=== PATIENT | male | born 1990 | race American Indian/Alaskan Native ===

== ENCOUNTER 2017-11-21 13:00 | Emergency (ER) | payer MEDICAID, OTHER ==
[2017-11-21 13:19] VITALS: BP 144/79; PULSE 77; RESP 20; TEMP 98.1; O2SAT 99
--- NOTE | 2017-11-21 14:09 | RAD ---
PROCEDURE: Radiographs of the Chest and Right Ribs. HISTORY: R chest wall discomfort T5/mid ax line COMPARISON: None available. TECHNIQUE: Frontal radiograph of the chest and multiple oblique radiographs of the right ribs were obtained. FINDINGS: RIGHT RIBS: No fracture or focal lesion visualized. LUNGS: Clear. PLEURA: No pneumothorax or pleural fluid. CARDIOVASCULAR: Normal sized heart. No pulmonary vascular congestion. OTHER FINDINGS: None. IMPRESSION: Unremarkable radiographs of the chest and right ribs. No right rib fracture.
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
== END 2017-11-21 14:20 | disposition home or self-care (01) ==
LOC: C.ER 13:00
DX: R07.81 Pleurodynia (principal)

== ENCOUNTER 2017-12-06 13:52 | Emergency (ER) | payer OTHER ==
[2017-12-06 14:06] VITALS: RESP 16; TEMP 98.3
--- NOTE | 2017-12-06 15:20 | C.PDOC ---
History Of Present Illness 27-year-old male, presents to the emergency department with complaints of abdominal pain yesterday, which has since resolved. He denies any nausea/ vomiting, fever, chills, chest pain, shortness of breath, or any other associated symptoms. No other complaints at this time. Time Seen by Provider: 12/06/17 14:35 Chief Complaint (Nursing): Abdominal Pain History Per: Patient History/Exam Limitations: no limitations Past Medical History Reviewed: Historical Data, Nursing Documentation, Vital Signs Vital Signs: Last Vital Signs Temp 98.3 F 12/06/17 14:01 Pulse 74 12/06/17 15:26 Resp 16 12/06/17 15:26 BP 118/79 12/06/17 15:26 Pulse Ox 99 12/06/17 15:26 - [facility] Procedures SUTURE OF LIP LACERATION (11/26/14) Family History: States: No Known Family Hx - Social History Hx Tobacco Use: Yes Hx Alcohol Use: No Hx Substance Use: No - Immunization History Hx Tetanus Toxoid Vaccination: Yes Hx Influenza Vaccination: Yes Hx Pneumococcal Vaccination: Yes Review Of Systems Constitutional: Negative for: Fever, Chills Cardiovascular: Negative for: Chest Pain, Palpitations Respiratory: Negative for: Shortness of Breath Gastrointestinal: Negative for: Nausea, Vomiting Musculoskeletal: Negative for: Back Pain Skin: Negative for: Rash Neurological: Negative for: Weakness, Numbness, Headache, Dizziness Physical Exam - Physical Exam Appears: Non-toxic, No Acute Distress Skin: Normal Color, Warm, Dry, No Rash Head: Normacephalic Eye(s): bilateral: PERRL Nose: Normal Oral Mucosa: Moist Lips: Normal Appearing Neck: Normal ROM Chest: Symmetrical Cardiovascular: Rhythm Regular, No Murmur Respiratory: Normal Breath Sounds, No Accessory Muscle Use Gastrointestinal/Abdominal: Soft, No Tenderness, No Guarding, No Rebound Extremity: Normal ROM, No Deformity, No Swelling Neurological/Psych: Oriented x3, Normal Speech ED Course And Treatment O2 Sat by Pulse Oximetry: 100 (RA) Pulse Ox Interpretation: Normal Medical Decision Making Medical Decision Making: Upon evaluation, pt is refusing bloodwork. he is advised to stay for further evaluation, but he specifically requests to be discharged. He was instructed to return immediately if symptoms return or worsen. Disposition - Disposition Disposition: HOME/ ROUTINE Disposition Time: 03:00 Condition: STABLE Additional Instructions: you are declining any lab evaluation today or imaging. you are able to return to any er with worsening symptoms or concerns Instructions: Acute Abdomen (Belly Pain) Forms: [facility] (Yi), Work Excuse - Clinical Impression Clinical Impression: Abdominal pain, Encounter to obtain excuse from work - Scribe Statement The provider has reviewed the documentation as recorded by the Scribe (Darcy Leon) Provider Attestation: All medical record entries made by the Scribe were at my direction and personally dictated by me. I have reviewed the chart and agree that the record accurately reflects my personal performance of the history, physical exam, medical decision making, and the department course for this patient. I have also personally directed, reviewed, and agree with the discharge instructions and disposition.
[2017-12-06 15:27] VITALS: BP 118/79; PULSE 74
[2017-12-06 19:31] VITALS: O2SAT 100
== END 2017-12-06 15:27 | disposition home or self-care (01) ==
LOC: C.ER 13:52
DX: R10.9 Unspecified abdominal pain (principal); Z72.0 Tobacco use

== ENCOUNTER 2018-03-31 15:45 | Emergency (ER) | payer OTHER ==
[2018-03-31 15:55] VITALS: BP 113/73; PULSE 86; TEMP 97.5; O2SAT 98
--- NOTE | 2018-03-31 16:22 | C.PDOC ---
History Of Present Illness 27 year old male, with no PMHx or PSHx, presents to the emergency department complaining of constipation x2 days. Patient states last bowel movement was yesterday afternoon; he has attempted since then but with no success. He reports of mild epigastric pain but denies any nausea, vomiting, fever, chills, chest pain, SOB, or dysuria. Patient has not attempted to use any over the counter medications. Time Seen by Provider: 03/31/18 15:57 Chief Complaint (Nursing): Abdominal Pain History Per: Patient History/Exam Limitations: no limitations Onset/Duration Of Symptoms: Days Current Symptoms Are (Timing): Still Present Past Medical History Reviewed: Historical Data, Nursing Documentation, Vital Signs Vital Signs: Last Vital Signs Temp 97.5 F L 03/31/18 15:51 Pulse 86 03/31/18 15:51 Resp 19 03/31/18 15:51 BP 113/73 03/31/18 15:51 Pulse Ox 98 03/31/18 16:59 - [facility] Procedures SUTURE OF LIP LACERATION (11/26/14) Family History: States: No Known Family Hx - Social History Hx Tobacco Use: Yes Hx Alcohol Use: Yes Hx Substance Use: No - Immunization History Hx Tetanus Toxoid Vaccination: Yes Hx Influenza Vaccination: Yes Hx Pneumococcal Vaccination: Yes Review Of Systems Except As Marked, All Systems Reviewed And Found Negative. Constitutional: Negative for: Fever, Chills Cardiovascular: Negative for: Chest Pain Respiratory: Negative for: Shortness of Breath Gastrointestinal: Positive for: Abdominal Pain (mild epigastric pain), Constipation. Negative for: Nausea, Vomiting Genitourinary: Negative for: Dysuria Physical Exam - Physical Exam Additional Physical Exam Comments: Constitutional: No acute distress. Head: Normocephalic. Atraumatic. Eyes: PERRL. ENT: Moist mucous membranes. Neck: Supple. Cardiovascular: Regular rate. Radial pulse 2+ bilaterally. Chest: No tenderness. Respiratory: Clear to auscultation bilaterally. GI: Soft. Nontender. Nondistended. Back: No CVA tenderness. Musculoskeletal: No tenderness or swelling of extremities. Skin: No rash. Neurologic: Alert, no focal deficit. ED Course And Treatment O2 Sat by Pulse Oximetry: 98 (RA) Pulse Ox Interpretation: Normal - Other Rad Abdomen X-Ray X-Ray: Read By Radiologist Interpretation: FINDINGS: BOWEL: Prominent amount of retained colonic stool. No obstruction. No free air. BONES: Normal. OTHER FINDINGS: None. IMPRESSION: Prominent amount of retained colonic stool. Medical Decision Making Medical Decision Making: Impression: Constipation Plan: - Abdomen X-Ray Disposition - Disposition Referrals: Cristian Bear MD, PhD [Staff Provider] - Disposition: HOME/ ROUTINE Disposition Time: 16:59 Condition: STABLE Prescriptions: Docusate [Colace] 100 mg PO BID #30 cap Magnesium Citrate [Citrate of Mag] 300 ml PO ONCE #1 bottle Polyethylene Glycol 3350 [Miralax] 17 gm PO DAILY #238 gm Instructions: Constipation in Adults Forms: [facility] (Mongolian) - Clinical Impression Clinical Impression: Constipation - Scribe Statement The provider has reviewed the documentation as recorded by the Silasibriri Khan Provider Attestation: All medical record entries made by the Silasibe were at my direction and personally dictated by me. I have reviewed the chart and agree that the record accurately reflects my personal performance of the history, physical exam, medical decision making, and the department course for this patient. I have also personally directed, reviewed, and agree with the discharge instructions and disposition.
--- NOTE | 2018-03-31 16:47 | RAD ---
Date of service: 03/31/2018 HISTORY: constipation COMPARISON: No prior. FINDINGS: BOWEL: Prominent amount of retained colonic stool. No obstruction. No free air. BONES: Normal. OTHER FINDINGS: None. IMPRESSION: Prominent amount of retained colonic stool.
[2018-03-31 17:11] VITALS: RESP 20
== END 2018-03-31 17:10 | disposition home or self-care (01) ==
LOC: C.ER 15:45
DX: K59.00 Constipation, unspecified (principal)

== ENCOUNTER 2018-11-05 15:07 | Emergency (ER) | payer SELFPAY ==
[2018-11-05 15:12] VITALS: BMI 30.2
[2018-11-05 15:14] VITALS: RESP 18
[2018-11-05] MEDS ORDERED: Tetanus/Diphtheria Toxoids 0.5 ml Syringe IM ONE ×2 (15:32→15:40)
[2018-11-05] MEDS ORDERED: Lidocaine 2% w Epi 1:200,000 Pf Inj INJ ONE (15:32)
--- NOTE | 2018-11-05 15:32 | C.PDOC ---
History Of Present Illness 27-year-old male presents to the ED for evaluation after accidentally sustaining a scalp injury prior to arrival. Patient states that a metal object fell onto his head while he was at work. He denies loss of consciousness, nausea, vomiting, or any other associated symptoms or injury at this time. 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 Time Seen by Provider: 11/05/18 15:19 Chief Complaint (Nursing): Abnormal Skin Integrity History Per: Patient History/Exam Limitations: no limitations Onset/Duration Of Symptoms: Hrs Past Medical History Reviewed: Historical Data, Nursing Documentation, Vital Signs Vital Signs: Last Vital Signs Temp 99.9 F H 11/05/18 15:12 Pulse 98 H 11/05/18 15:12 Resp 18 11/05/18 15:12 BP 153/90 H 11/05/18 15:12 Pulse Ox 99 11/05/18 15:12 - Medical History PMH: Asthma Surgical History: No Surg Hx - [facility] Procedures SUTURE OF LIP LACERATION (11/26/14) Family History: States: Unknown Family Hx - Social History Hx Tobacco Use: Yes Hx Alcohol Use: Yes Hx Substance Use: No - Immunization History Hx Tetanus Toxoid Vaccination: Yes Hx Influenza Vaccination: Yes Hx Pneumococcal Vaccination: Yes Review Of Systems Gastrointestinal: Negative for: Nausea, Vomiting Neurological: Positive for: Other (+head injury, no LOC ) Physical Exam - Physical Exam Appears: Non-toxic, No Acute Distress Skin: Warm, Dry, Other (+2.5 CM R FRONT SCALP LAX NO SWELL NO ACTIVE BLEED) Head: No Swelling, No Other (deformity) Eye(s): bilateral: Normal Inspection, PERRL, EOMI Neck: Normal ROM, Supple Chest: Symmetrical, No Deformity Extremity: Normal ROM Neurological/Psych: Oriented x3, Normal Speech, Normal Cognition Gait: Steady ED Course And Treatment O2 Sat by Pulse Oximetry: 99 Progress Note: Tetanus IM administered. Laceration - Laceration Repair No standard instances Wound Length (In cm): 2.5 Description Of Wound: Linear, Clean Anesthesia: Lidocaine 1%, With Epi Wound Examination: Irrigated With Saline, No FB With Wound Exploration Wound Closure: Philo Wound Complexity: Intermediate (ARTERIAL BLEED CAUTERIZED, BLEEDING RESOLVED.) Disposition Counseled Patient/Family Regarding: Diagnosis, Need For Followup - Disposition Referrals: [facility] [Provider Group] Disposition: HOME/ ROUTINE Disposition Time: 15:56 Condition: IMPROVED Additional Instructions: RETURN 7-10 DAYS FOR STAPLE REMOVAL. TYLENOL, ICE TO AFFECTED NEEDED Instructions: Laceration Repair With Bernard (DC), Minor Head Injury (DC) Forms: [facility] (Yoruba), Work Excuse - Clinical Impression Clinical Impression: Scalp laceration, Minor head injury without loss of consciousness
[2018-11-05 16:10] VITALS: BP 127/82; PULSE 82; TEMP 98
[2018-11-06 00:17] VITALS: O2SAT 99
== END 2018-11-05 16:36 | disposition home or self-care (01) ==
LOC: C.ER 15:07
DX: S01.01XA Laceration without foreign body of scalp, initial encounter (principal); W22.8XXA Striking against or struck by other objects, initial encounter; Y92.89 Other specified places as the place of occurrence of the external cause; Y99.0 Civilian activity done for income or pay

== ENCOUNTER → 2018-11-13 19:07 | Emergency (ER) | payer SELFPAY ==
[2018-11-13 19:08] VITALS: BMI 30.2
== END | disposition left against medical advice (07) ==
LOC: C.ER 19:07
DX: Z02.89 Encounter for other administrative examinations (principal)

== ENCOUNTER 2018-11-16 17:52 | Emergency (ER) | payer SELFPAY ==
[2018-11-16 17:53] VITALS: BMI 30.2
[2018-11-16 18:08] VITALS: BP 146/82; PULSE 78; RESP 18; TEMP 98.3; O2SAT 98
--- NOTE | 2018-11-16 18:43 | C.PDOC ---
History Of Present Illness 28 year old male presents to ED for staple removal from the right frontal scalp. Patient reports that he feels well. Patient denies numbness, weakness, discharge, redness, fever, and chills. Time Seen by Provider: 11/16/18 18:21 Chief Complaint (Nursing): Suture/Staple Removal History Per: Patient History/Exam Limitations: no limitations Onset/Duration Of Symptoms: Other (staple removal) Location Of Injury: Right: Head (well healed staple wound on the frontal scalp) Quality Of Symptoms: denies: Painful, Itching, Swollen, Draining Past Medical History Reviewed: Historical Data, Nursing Documentation, Vital Signs Vital Signs: Last Vital Signs Temp 98.3 F 11/16/18 18:03 Pulse 78 11/16/18 18:03 Resp 18 11/16/18 18:03 BP 146/82 11/16/18 18:03 Pulse Ox 98 11/16/18 18:03 Primary Care Provider: Cristian Bear - Medical History PMH: Asthma Surgical History: No Surg Hx - [facility] Procedures SUTURE OF LIP LACERATION (11/26/14) Family History: States: Unknown Family Hx - Social History Hx Tobacco Use: Yes Hx Alcohol Use: Yes Hx Substance Use: No - Immunization History Hx Tetanus Toxoid Vaccination: Yes Hx Influenza Vaccination: Yes Hx Pneumococcal Vaccination: Yes Review Of Systems Constitutional: Negative for: Fever, Chills, Weakness ENT: Positive for: Other (staple wound to the right frontal scalp, no discharge, no redness) Skin: Negative for: Rash Neurological: Negative for: Weakness, Numbness Physical Exam - Physical Exam Appears: Well, Non-toxic, No Acute Distress Skin: Normal Color, Warm, Dry Head: Atraumatic, Normacephalic, Other (well-healed staple wound to the right frontal scalp, no drainage, no erythema) Eye(s): bilateral: Normal Inspection Neck: Normal ROM, Supple Chest: Symmetrical, No Deformity Cardiovascular: Rhythm Regular, No Murmur Respiratory: No Accessory Muscle Use, No Rales, No Rhonchi, No Wheezing Gastrointestinal/Abdominal: Soft, No Tenderness Extremity: Capillary Refill (<2 seconds) Neurological/Psych: Oriented x3, Normal Speech, Normal Cognition, Normal Sensation ED Course And Treatment O2 Sat by Pulse Oximetry: 98 (in RA) Pulse Ox Interpretation: Normal Medical Decision Making Medical Decision Making: Initial Plan: Removed all 5 emiliana with no difficulty. Patient tolerated well. Disposition - Disposition Disposition: HOME/ ROUTINE Disposition Time: 18:43 Condition: GOOD Additional Instructions: Return if worsened. 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 (Piedad Cuevas) - Scribe Statement The provider has reviewed the documentation as recorded by the Scribe (Piedad Cuevas) All medical record entries made by the Scribe were at my direction and personally dictated by me. I have reviewed the chart and agree that the record accurately reflects my personal performance of the history, physical exam, medical decision making, and the department course for this patient. I have also personally directed, reviewed, and agree with the discharge instructions and disposition.
== END 2018-11-16 18:49 | disposition home or self-care (01) ==
LOC: C.ER 17:52
DX: Z48.02 Encounter for removal of sutures (principal)